=== PATIENT | female | born 1955 | race Caucasian/White ===

== ENCOUNTER 2018-07-11 16:34 | Emergency (ER) | payer SELFPAY, MEDICAID | END 2018-07-12 18:22 | disposition home or self-care (01) | LOC: E/R 07-12 18:22 → FTE 16:34 | DX: M54.2 Cervicalgia (principal) | CPT/HCPCS: 99283 ==

== ENCOUNTER 2018-10-22 10:06 | Emergency (ER) | payer MEDICAID ==
[2018-10-22] MEDS: DIAZEPAM 5 MG TAB PO (11:21)
[2018-10-22] MEDS: KETOROLAC 30 MG INJ IM (11:21)
== END 2018-10-22 11:59 | disposition home or self-care (01) ==
LOC: FTE 10:06
DX: M54.6 Pain in thoracic spine (principal)
CPT/HCPCS: 96372; 99284-25